=== PATIENT | female | born 1980 | race Caucasian/White ===

== ENCOUNTER 2017-12-15 19:01 | Emergency (ER) | payer BC ==
[~2017-12-15] VITALS: Ht 170.2 cm; Wt 100.0 kg
[2017-12-15 19:12] VITALS: BP 150/85
[2017-12-15] MEDS ORDERED: HYDR-3965 PO (20:51)
[2017-12-15] MEDS ORDERED: FLUC100T PO (20:51)
== END 2017-12-15 21:11 | disposition home or self-care (01) ==
LOC: ER 19:02
DX: L98.8 Other specified disorders of the skin and subcutaneous tissue (principal); Z88.2 Allergy status to sulfonamides
CPT/HCPCS: 99283